=== PATIENT | male | born 1975 | race African-American/Black ===

== ENCOUNTER 2017-11-02 18:28 | Emergency (ER) | payer OTHER ==
[~2017-11-02] VITALS: Ht 170.2 cm; Wt 78.9 kg
[~2017-11-02 18:28] MED LIST: NO HOME MEDS
[2017-11-02 19:21] LABS: HEMATOCRIT 46.5 % (38.0-50.0); HEMOGLOBIN 16.5 G/DL (12.5-16.6); MCH 30.9 PG (29.0-34.0); MCHC 35.5 G/DL (30.0-36.0); MCV 87.1 FL (86-99); PLATELET COUNT 266 K/uL (156-360); RBC DIS.WIDTH-CV 11.5 % (11.8-14.6); RBC DIS.WIDTH-SD 36.8 % (39-53); RED BLOOD COUNT 5.34 M/uL (4.00-5.50); WHITE BLOOD COUNT 6.2 K/uL (4.1-10.2)
[2017-11-02 19:30] VITALS: BP 132/76
[2017-11-02 19:32] LABS: CHLORIDE 106 mEq/L (99-109); POTASSIUM 3.5 mEq/L (3.7-5.4); SODIUM 142 mEq/L (136-147)
[2017-11-02 19:33] LABS: GLUCOSE 181 mg/dL (70-99)
[2017-11-02 19:34] LABS: AMPHETAMINE NEGATIVE (500 ng/mL); BARBITURATES NEGATIVE (200 ng/mL); BENZODIAZEPINES NEGATIVE (150 ng/mL); BUPRENORPHINE NEGATIVE (10 ng/mL); COCAINE PRESUMPTIVE POSITIVE (150 ng/mL); METHADONE NEGATIVE (200 ng/mL); METHAMPHETAMINE NEGATIVE (500 ng/mL); OPIATES (MORPHINE) NEGATIVE (100 ng/mL); OXYCODONE NEGATIVE (100 ng/mL); PHENCYCLIDINE PRESUMPTIVE POSITIVE (25 ng/mL); PROPOXYPHENE NEGATIVE (300 ng/mL); THC CANNABINOIDS NEGATIVE (50 ng/mL); TRICYCLIC ANTIDEPRESSANTS NEGATIVE (300 ng/mL)
[2017-11-02 19:37] LABS: CREATININE 1.6 mg/dL (0.6-1.3); GFR ESTIMATE (CALCULATED) > 59 mL/min/ (58.99-99999); SERUM ETHYL ALCOHOL < 10 mg/dL
[2017-11-02 19:38] LABS: UREA NITROGEN (BUN) 11 mg/dL (9-23)
[2017-11-02 19:46] LABS: TROP-I INTERPRETATION NEGATIVE; TROPONIN-I < 0.01 ng/mL (0.0-0.30)
== END 2017-11-02 20:39 | disposition home or self-care (01) ==
LOC: EME 18:28
PROVIDERS: Nurse Practitioner Family
DX: F16.988 Hallucinogen use, unspecified with other hallucinogen-induced disorder (principal); R46.2 Strange and inexplicable behavior; S10.91XA Abrasion of unspecified part of neck, initial encounter; F17.200 Nicotine dependence, unspecified, uncomplicated; X58.XXXA Exposure to other specified factors, initial encounter
CPT/HCPCS: 80048; 84484; 84999; 85027; 93005; 99281; 99283; G0480